=== PATIENT | female | born 1965 | race Caucasian/White ===

== ENCOUNTER → 2021-11-18 | Outpatient (CLI) | payer SELFPAY ==
--- NOTE | 2021-11-18 08:20 | CT_ITS ---
EXAM: CT MAXILLOFACIAL SINUSES WITHOUT INTRAVENOUS CONTRAST CLINICAL INDICATION: SINUSITIS TECHNIQUE: Helically acquired images were obtained of the maxillofacial sinuses without intravenous contrast. This CT exam was performed using one or more of the following dose reduction techniques: automated exposure control, adjustment of the mA and/or kV according to patient size, and/or use of iterative reconstruction technique. This report was created using [employer] report generation technology. COMPARISON: None. FINDINGS: Mucosal thickening within the paranasal sinuses noted sparing the sphenoid sinus. NASAL CAVITY/SEPTUM: Nasal septum is deviated to the right of midline approximately 3 mm associated with right-sided septal spur. Nasal turbinates are unremarkable. BONES/JOINTS: Anterior cranial fossa is unremarkable. ORBITS: Normal. DENTAL: Unremarkable as visualized. No periodontal osseous erosion. CT/Sinus/Facial Bone IMPRESSION: 1. Subacute or chronic paranasal sinusitis. 2. 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 Electronically Signed: Andres Sprague MD at 9:37 EDT ,
== END | disposition home or self-care (01) ==
PROVIDERS: Referring Provider Otolaryngology Otolaryngic Allergy; Visit Provider Otolaryngology Otolaryngic Allergy
DX: J32.9 Chronic sinusitis, unspecified (principal)
CPT/HCPCS: 70486